=== PATIENT | male | born 1985 | race Caucasian/White ===

== ENCOUNTER 2018-08-28 21:04 | Emergency (ER) | payer SELFPAY ==
[~2018-08-28] VITALS: Ht 172.7 cm; Wt 113.6 kg
[2018-08-28] MEDS ORDERED: KETOROLAC TROMETHAMINE 60 MG/2 ML VIAL IM ONE (21:45)
[2018-08-28 23:02] VITALS: BP 143/84
== END 2018-08-28 23:45 | disposition home or self-care (01) ==
LOC: EMS 21:06
DX: S86.812A Strain of other muscle(s) and tendon(s) at lower leg level, left leg, initial encounter (principal); I10 Essential (primary) hypertension; F17.210 Nicotine dependence, cigarettes, uncomplicated; X58.XXXA Exposure to other specified factors, initial encounter; Y93.89 Activity, other specified; Y92.89 Other specified places as the place of occurrence of the external cause; Y99.8 Other external cause status
CPT/HCPCS: 76881; 96372; 99284; J1885